=== PATIENT | male | born 1990 | race Caucasian/White ===

== ENCOUNTER 2023-10-29 17:43 | Emergency (ER) | payer BC ==
[~2023-10-29] VITALS: Ht 177.8 cm; Wt 70.3 kg
[2023-10-29] MEDS ORDERED: LISI10TA29 PO (18:25)
[2023-10-29] MEDS ORDERED: HYDR-3980 PO (18:56)
[2023-10-29] MEDS ORDERED: ONDA4TAB5 PO (18:56)
[2023-10-29 19:11] VITALS: BP 139/96; O2SAT 100
== END 2023-10-29 19:11 | disposition home or self-care (01) ==
LOC: ER 17:48
DX: S76.112A Strain of left quadriceps muscle, fascia and tendon, initial encounter (principal); Z79.899 Other long term (current) drug therapy; Z60.2 Problems related to living alone; X58.XXXA Exposure to other specified factors, initial encounter; Y93.73 Activity, racquet and hand sports; Y92.89 Other specified places as the place of occurrence of the external cause; Y99.8 Other external cause status
CPT/HCPCS: A4606; A4663